=== PATIENT | male | born 1970 | race Caucasian/White ===

== ENCOUNTER 2017-08-19 10:14 | Emergency (ER) | payer MEDICAID, OTHER ==
[~2017-08-19] VITALS: Ht 175.3 cm; Wt 96.7 kg
[2017-08-19 10:18] VITALS: Ht 175.3 cm; Wt 96.7 kg
[2017-08-19] MEDS ORDERED: SOD CHLORIDE 0.9% 1,000 ML IV STA (10:49)
[2017-08-19] MEDS ORDERED: ASPIRIN 81 MG TAB PO STA (10:49)
[2017-08-19] MEDS ORDERED: FOLIC ACID 1 MG TAB PO ONE (11:00)
[2017-08-19] MEDS ORDERED: LORAZEPAM 2 MG INJ IV ONE (11:00)
[2017-08-19] MEDS ORDERED: THIAMINE 100 MG TAB PO ONE (11:00)
[2017-08-19] MEDS ORDERED: CHLORDIAZEPOXIDE 25 MG CAP PO ONE (11:00)
--- NOTE | 2017-08-19 11:14 | RADRPT ---
PROCEDURE: XR Chest. CLINICAL INDICATION: Chest pain TECHNIQUE: A single AP view of the chest was obtained. COMPARISON: None. FINDINGS: No focal airspace opacification, pleural effusion or pneumothorax is seen. The cardiomediastinal si lhouette is within normal limits for size. The osseous structures are unremarkable. IMPRESSION: Unremarkable chest x-ray. RPTAT: HH .Shania Melgar MD, MD Date Time Electronically viewed and signed by .Shania Melgar MD, on 08/19/2017 11:14 .G/
[2017-08-19 11:17] LABS: BASOPHILS % 0.6 % (0.0-2.0); EOSINOPHILS # 0.2 10^3/ul (0.0-0.5); EOSINOPHILS % 3.1 % (0.0-7.0); HEMATOCRIT 38.9 % (42.0-52.0); HEMOGLOBIN 13.5 g/dl (14.0-18.0); LYMPHOCYTES # 1.2 10^3/ul (0.8-2.9); LYMPHOCYTES % 25.8 % (15.0-51.0); MEAN CORPUSCULAR HGB CONC 34.7 g/dl (32.0-37.0); MEAN CORPUSCULAR VOLUME 89.2 fl (82.0-101.0); MEAN PLATELET VOLUME 10.1 fl (7.4-10.4); MONOCYTE # 0.3 10^3/ul (0.3-0.9); MONOCYTES % 5.4 % (0.0-11.0); NEUTROPHIL # 3.1 10^3/ul (1.6-7.5); NEUTROPHILS % 64.7 % (39.0-77.0); PLATELET COUNT 126 10^3/UL (140-415); RED BLOOD COUNT 4.36 10^6/ul (4.70-6.10); RED CELL DISTRIBUTION WIDTH 13.2 % (11.5-14.5); WHITE BLOOD COUNT 4.8 10^3/ul (4.8-10.8)
[2017-08-19 11:39] LABS: ANION GAP 16 (8-16); BLOOD UREA NITROGEN 12 mg/dl (7-20); CALCIUM 8.1 mg/dl (8.4-10.2); CARBON DIOXIDE 29 mmol/L (21-31); CHLORIDE 101 mmol/L (97-110); CREATININE 0.75 mg/dl (0.61-1.24); GLUCOSE 87 mg/dl (70-220); POTASSIUM 3.4 mmol/L (3.5-5.1); SODIUM 143 mmol/L (135-144)
[2017-08-19 11:59] LABS: TROPONIN-I < 0.012 ng/ml (0.00-0.12)
[2017-08-19] MEDS ORDERED: CHLO25CA9 PO (12:45)
[2017-08-19 14:28] VITALS: BP 145/78; RESP 18
--- NOTE | 2017-08-19 14:56 | ERD ---
ER Documentation Chief Complaint Chief Complaint etoh withdrawal, last drink yesterday, c/o chest pain today HPI This is a 47-year-old male who presents to the emergency room stating that he is in alcohol withdrawal. The patient states that he has an alcohol problem and drinks daily. His last drink was early this morning. He also describes some mild burning chest discomfort that is nonexertional, nonpleuritic similar to episodes of gastritis in the past. He states that he is feeling tremulous and would like a prescription for Librium. He has a sponsor and is motivated to stop drinking. No hematemesis or melena. ROS All systems reviewed and are negative except as per history of present illness. Medications Home Meds Active Scripts Chlordiazepoxide* (Chlordiazepoxide*) 25 Mg Capsule, 25 MG PO BID for 6 Days, CAP 50mg PO BID x 2 days 25mg PO BID x 2 days 25mg PO Daily x 2 days Prov:CAL QUIROZ MD 08/19/17 PMhx/Soc Hx Miscellaneous Medical Probl: Yes (ETOH) Hx Alcohol Use: Yes Hx Substance Use: No Hx Tobacco Use: No Smoking Status: Current every day smoker FmHx Family History: No diabetes Physical Exam Vitals Vital Signs Date Time Temp Pulse Resp B/P Pulse Ox O2 Delivery O2 Flow Rate FiO2 08/19/17 14:28 18 145/78 98 Room Air 08/19/17 11:15 Nasal Cannula 2 08/19/17 10:18 98.2 92 18 160/91 97 Physical Exam General: Well developed, well nourished, no acute distress Head: Normocephalic, atraumatic. Eyes: Pupils equally reactive, EOM intact ENT: Moist mucous membranes Neck: Supple, no lymphadenopathy Respiratory: Lungs clear bilaterally, no distress Cardiovascular: RRR, no murmurs, rubs, or gallops Abdominal: Soft, non-tender, non-distended, no peritoneal signs : Deferred MSK: No edema, no unilateral swelling, 5/5 strength Neurologic: Alert and oriented, moving all extremities, normal speech, no focal weakness, no cerebellar signs Skin: No rash Psych: Normal mood Result Diagram: 08/19/17 1100 08/19/17 1100 Results 24 hrs Laboratory Tests Test 08/19/17 11:00 White Blood Count 4.810^3/ul Red Blood Count 4.3610^6/ul Hemoglobin 13.5g/dl Hematocrit 38.9% Mean Corpuscular Volume 89.2fl Mean Corpuscular Hemoglobin 31.0pg Mean Corpuscular Hemoglobin Concent 34.7g/dl Red Cell Distribution Width 13.2% Platelet Count 80100^3/UL Mean Platelet Volume 10.1fl Neutrophils % 64.7% Lymphocytes % 25.8% Monocytes % 5.4% Eosinophils % 3.1% Basophils % 0.6% Nucleated Red Blood Cells % 0.0/100WBC Neutrophils # 3.110^3/ul Lymphocytes # 1.210^3/ul Monocytes # 0.310^3/ul Eosinophils # 0.210^3/ul Basophils # 0.010^3/ul Nucleated Red Blood Cells # 0.010^3/ul Sodium Level 143mmol/L Potassium Level 3.4mmol/L Chloride Level 101mmol/L Carbon Dioxide Level 29mmol/L Anion Gap 16 Blood Urea Nitrogen 12mg/dl Creatinine 0.75mg/dl Glucose Level 87mg/dl Calcium Level 8.1mg/dl Troponin I < 0.012ng/ml Current Medications Medications (Trade) Dose Ordered Sig/Keli Route PRN Reason Start Time Stop Time Status Last Admin Dose Admin Sodium Chloride (NS) 1,000 ml @ 1,000 mls/hr Q1H STAT IV 08/19/17 10:49 08/19/17 11:48 DC 08/19/17 11:16 Aspirin (Aspirin) 162 mg ONCE STAT PO 08/19/17 10:49 08/19/17 10:52 DC 08/19/17 11:16 Thiamine HCl (Vitamin B1) 100 mg ONCE ONCE PO 08/19/17 11:00 08/19/17 11:01 DC 08/19/17 14:23 Folic Acid (Folic Acid) 1 mg ONCE ONCE PO 08/19/17 11:00 08/19/17 11:01 DC 08/19/17 14:23 Lorazepam (Ativan) 1 mg ONCE ONCE IV 08/19/17 11:00 08/19/17 11:01 DC 08/19/17 11:16 Chlordiazepoxide (Librium) 50 mg ONCE ONCE PO 08/19/17 11:00 08/19/17 11:01 DC 08/19/17 11:16 Procedures/MDM EKG, MONITORS, & DIAGNOSTIC IMAGING: EKG: I reviewed and interpreted a 12-lead EKG. Rhythm: Normal sinus rhythm Ectopy: None Intervals: No abnormalities ST segments: No elevations or depressions T waves: No contiguous inversions Chest x-ray: I reviewed and interpreted a 1 view of the chest Mediastinum: No enlargement Cardiac silhouette: No cardiomegaly Airspace: Clear lung tam bilaterally without evidence of pneumothorax Bones: No evidence of fracture LAB INTERPRETATION: Mild thrombocytopenia consistent with alcohol abuse, negative troponin MEDICAL DECISION MAKING: The patient's chest pain is most consistent with likely dyspepsia, alcoholic gastritis. He has limited risk factors for early cardiac disease. I believe the patient would benefit from basic blood work, EKG and troponin but I do not believe that serial troponins or hospitalization is absolutely necessary. We discussed the risks of inpatient versus outpatient management. The patient would like to be discharged. ER COURSE: Evidence of mild alcohol withdrawal. Patient given IV fluids, Ativan, thiamine , folic acid and Librium. The patient's symptoms have improved. He has no further chest pain. The patient is safe for discharge and a decent candidate for outpatient benzodiazepine. I kept the patient and/or family informed of laboratory and diagnostic imaging results throughout the emergency room course. DISPOSITION PLAN: We discussed follow up with the patient's primary care doctor within 24 to 48 hours as needed. We also discussed return to the emergency room for worsening symptoms or worsening condition. Outpatient referral: [None required] Discharge Medications: Librium Departure Diagnosis: Primary Impression: Alcohol withdrawal Complication of substance-induced condition: uncomplicated Qualified Code: F10.230 - Alcohol withdrawal syndrome without complication Additional Impressions: Chest pain Chest pain type: unspecified Qualified Code: R07.9 - Chest pain, unspecified type Thrombocytopenia Condition: Stable Patient Instructions: Alcohol Withdrawal, Chest Pain, Uncertain Cause Referrals: COMMUNITY CLINICS YOU HAVE RECEIVED A MEDICAL SCREENING EXAM AND THE RESULTS INDICATE THAT YOU DO NOT HAVE A CONDITION THAT REQUIRES URGENT TREATMENT IN THE EMERGENCY DEPARTMENT. FURTHER EVALUATION AND TREATMENT OF YOUR CONDITION CAN WAIT UNTIL YOU ARE SEEN IN YOUR DOCTORS OFFICE WITHIN THE NEXT 1-2 DAYS. IT IS YOUR RESPONSIBILITY TO MAKE AN APPOINTMENT FOR FOLOW-UP CARE. IF YOU HAVE A PRIMARY DOCTOR --you should call your primary doctor and schedule an appointment IF YOU DO NOT HAVE A PRIMARY DOCTOR YOU CAN CALL OUR PHYSICIAN REFERRAL HOTLINE AT IF YOU CAN NOT AFFORD TO SEE A PHYSICIAN YOU CAN CHOSE FROM THE FOLLOWING [facility] [address] [facility] [place] [address] [facility] [address] [facility] [address] [facility] [address] [facility]. [facility] [address] [facility]. [facility] YOU HAVE RECEIVED A MEDICAL SCREENING EXAM AND THE RESULTS INDICATE THAT YOU DO NOT HAVE A CONDITION THAT REQUIRES URGENT TREATMENT IN THE EMERGENCY DEPARTMENT. FURTHER EVALUATION AND TREATMENT OF YOUR CONDITION CAN WAIT UNTIL YOU ARE SEEN IN YOUR DOCTORS OFFICE WITHIN THE NEXT 1-2 DAYS. IT IS YOUR RESPONSIBILITY TO MAKE AN APPOINTMENT FOR FOLOW-UP CARE. IF YOU HAVE A PRIMARY DOCTOR --you should call your primary doctor and schedule and appointment IF YOU DO NOT HAVE A PRIMARY DOCTOR YOU CAN CALL OUR PHYSICIAN REFERRAL HOTLINE AT . IF YOU CAN NOT AFFORD TO SEE A PHYSICIAN YOU CAN CHOSE FROM THE FOLLOWING [facility]: [facility] [address] [place] [address] [facility] [address] [place] [address] [facility] [address] [place] [address] Additional Instructions: Call your primary care doctor TOMORROW for an appointment during the next 1 WEEK.Tell the national secretary that you were referred from this facility.See the doctor sooner or return here if your condition worsens before your appointment time. CAL QUIROZ MD Aug 19, 2017 14:56
== END 2017-08-19 14:29 | disposition home or self-care (01) ==
LOC: E/R 10:14
DX: F10.230 Alcohol dependence with withdrawal, uncomplicated (principal); R07.9 Chest pain, unspecified; D69.6 Thrombocytopenia, unspecified; F17.210 Nicotine dependence, cigarettes, uncomplicated
CPT/HCPCS: 36415; 71010; 80048; 84484; 85025; 93005; 96374; J2060; J7030; Z7502; Z7610